=== PATIENT | female | born 2000 | race Two or more races ===

== ENCOUNTER 2024-03-28 16:02 | Emergency (ER) | payer MEDICAID, OTHER ==
[~2024-03-28] VITALS: Ht 172.7 cm; Wt 138.7 kg
[2024-03-28 18:20] VITALS: BP 115/68; PULSE 62; RESP 16; TEMP 98.6; O2SAT 98
== END 2024-03-29 07:36 | disposition left against medical advice (07) ==
LOC: ER 16:11
DX: R42 Dizziness and giddiness (principal); R11.0 Nausea; M54.2 Cervicalgia; F41.9 Anxiety disorder, unspecified; Z53.21 Procedure and treatment not carried out due to patient leaving prior to being seen by health care provider
CPT/HCPCS: 82962; 93005